=== PATIENT | female | born 1945 | race Caucasian/White ===

== ENCOUNTER 2021-11-18 15:47 | Emergency (ER) | payer MEDICARE, OTHER, SELFPAY ==
[2021-11-18 15:51] VITALS: BP 136/71; PULSE 86; RESP 18; TEMP 36.6; O2SAT 99; BMI 25.8
--- NOTE | 2021-11-18 15:56 | W.ED.GENADLT ---
HPI - General Adult General: Chief complaint: Altered Mental Status Stated complaint: AMS Time Seen by Provider: 11/18/21 15:56 Limitations: altered mental status History of Present Illness: Ms. Long is a 76-year-old lady who presents to the emergency department for reported increased confusion. Patient provides no significant meaningful history. Patient apparently has history of dementia. Per supplement information provided by nurse apparently the patient has had worsening behavioral issues and has escaped her memory care unit multiple times. At times she hits kicks punches. Today apparently she ate a bar of soap. Review of Systems General: Reports: ROS unobtainable due to medical condition and ROS unobtainable due to mental status PFSH ED PFSH: Medical History Dementia Social History Lives independently: No Housing: Custodial Physical Exam Const: COMMON NORMALS: alert EXAM LIMITATIONS: altered mental status HENMT: COMMON NORMALS: normocephalic and atraumatic HEAD & SCALP: normocephalic and atraumatic Eye: COMMON NORMALS: conjunctivae normal CONJUNCTIVA: Yes conjunctivae normal SCLERA: sclerae normal Neck/C-Spine: COMMON NORMALS: supple GENERAL: Yes trachea midline Resp: COMMON NORMALS: normal respiratory effort EFFORT & INSPECTION: Yes able to speak in complete sentences Cardio: COMMON NORMALS: regular rate and regular rhythm RATE: regular rate RHYTHM: regular rhythm GI: COMMON NORMALS: Soft to palpation PALPATION: Yes Soft to palpation and No Tenderness to palpation present (GI) Extremity: GENERAL: Yes normal exam except as noted and No edema Neuro: COMMON NORMALS: moves all extremities SENSORIUM/ORIENTATION: Yes alert and Yes Orientation impaired Psych: ATTENTION/CONCENTRATION: Yes attention grossly impaired MEMORY/COGNITION: Yes memory grossly impaired Course ED course: - Patient was seen and evaluated by me at bedside - Vital signs obtained - Initial evaluation notable for exam as above, limited history secondary to mental status - Labs and xrays personally interpreted by me - Labs notable for no leukocytosis, normal hemoglobin. Metabolic panel without acute electrolyte derangement requiring treatment. Delta troponin is negative. No evidence of a urinary tract infection - Imaging notable for negative head CT as imaged, though radiology notes limited exam I have low clinical suspicion for acute process. No lobar consolidation or pneumothorax on chest x-ray - Upon serial reexamination after treatment the patient was similar - Based on patient history, evaluation, and testing as interpreted the most likely cause of the patient's condition is behavior changes related to underlying dementia. There is no clinical indication for hospitalization. The patient resides in a dementia unit and the nursing facility should have capability to care for patient - Patient discharged in satisfactory condition back to group home. Note: Click bubbles or prepopulated jackson in note writing are used for assistance with data collection and billing and are inherently more limited than narrative and other text portions of this note. Please use narrative for additional clinical history and defer to narrative/free test for any case of contradictory information. If information appears in only free text or click bubble it should be considered present or absent as reported. Please contact note production underwriter for clarifications of clinical information or contradictory information. MDM is a brief summary, contradictory or erroneous seeming information should be clarified and full note should be reviewed. Vital Signs: Vital signs: Vital Signs Temperature 97.9 F 11/18/21 15:51 Pulse Rate 80 11/18/21 20:41 Respiratory Rate 18 11/18/21 20:41 Blood Pressure 120/71 11/18/21 20:41 Pulse Oximetry 98 11/18/21 20:41 MDM - General Adult Medical Decision Making 76-year-old lady with reported history of dementia presenting with behavioral changes. Negative ED evaluation. Changes most certainly related to underlying dementia. Patient resides in a dementia unit. Satisfactory for return to group home. Medical Records I reviewed the patient's medical records. Lab Data I reviewed the patient's lab results. : 11/18/21 16:38 11/18/21 16:38 Radiology Impressions Chest X-Ray 11/18/21 16:16 IMPRESSION: No acute findings. Head CT 11/18/21 16:16 IMPRESSION: 1. Examination is limited secondary to motion artifact which could obscure subtle pathology. 2. No acute intracranial findings. Laboratory Results WBC 6.9 10^3/uL (4.0-10.0) 11/18/21 16:38 RBC 3.89 10^6/uL (4.1-5.3) L 11/18/21 16:38 Hgb 12.0 g/dL (11.5-15.3) 11/18/21 16:38 Hct 37.3 % (37.0-47.0) 11/18/21 16:38 MCV 95.9 fl (81-99) 11/18/21 16:38 MCH 30.8 pg (28.0-34.0) 11/18/21 16:38 MCHC 32.2 g/dL (30.0-36.0) 11/18/21 16:38 RDW 14.6 % (12.1-15.1) 11/18/21 16:38 Plt Count 223 10^3/cmm (130-400) 11/18/21 16:38 MPV 10.2 fL (7.4-10.4) 11/18/21 16:38 Neut % (Auto) 72.1 % 11/18/21 16:38 Lymph % (Auto) 13.7 % 11/18/21 16:38 Turner % (Auto) 6.1 % 11/18/21 16:38 Eos % (Auto) 6.8 % 11/18/21 16:38 Baso % (Auto) 1.0 % 11/18/21 16:38 Neut # (Auto) 5.01 10^3/uL (1.8-7.7) 11/18/21 16:38 Lymph # (Auto) 1.0 10^3/uL (0.8-4.8) 11/18/21 16:38 Turner # (Auto) 0.4 10^3/uL (0.2-0.9) 11/18/21 16:38 Eos # (Auto) 0.5 10^3/uL (0.0-0.8) 11/18/21 16:38 Baso # (Auto) 0.1 10^3/uL (0.0-0.1) 11/18/21 16:38 Nucleated RBC % (auto) 0 % 11/18/21 16:38 Nucleated RBCs # 0.0 /100WBC 11/18/21 16:38 Sodium 142 mmol/L (136-145) 11/18/21 16:38 Potassium 4.0 mmol/L (3.5-5.1) 11/18/21 16:38 Chloride 108 mmol/L (98-107) H 11/18/21 16:38 Carbon Dioxide 25 mmol/L (22-29) 11/18/21 16:38 Anion Gap 13.0 (5-19) 11/18/21 16:38 BUN 18 mg/dL (8-23) 11/18/21 16:38 Creatinine 0.8 mg/dL (0.5-0.9) 11/18/21 16:38 GFR Calculation Not Reportable 11/18/21 16:38 Glucose 103 mg/dL (65-115) 11/18/21 16:38 Calculated Osmolality 296 mOsm/kg (285-295) H 11/18/21 16:38 Calcium 10.6 mg/dL (8.5-10.5) H 11/18/21 16:38 Total Bilirubin 0.3 mg/dL (0.15-1.2) 11/18/21 16:38 AST 16 U/L (0-32) 11/18/21 16:38 ALT 11 U/L (0-33) 11/18/21 16:38 Alkaline Phosphatase 140 IU/L (35-105) H 11/18/21 16:38 Troponin T Baseline 11 ng/L (0-10) H 11/18/21 16:38 Troponin T 120 Minute 11.18 ng/L (0-10) H 11/18/21 18:23 Delta Troponin T 0.18 ABS# (0-10) 11/18/21 18:23 Total Protein 6.2 g/dL (6.6-8.7) L 11/18/21 16:38 Albumin 4.4 g/dL (3.5-5.2) 11/18/21 16:38 Globulin 1.8 g/dL (1.3-4.6) 11/18/21 16:38 TSH 1.56 uIU/mL (0.27-4.20) 11/18/21 16:38 Urine Color Straw (Yellow) 11/18/21 18:40 Urine Appearance Clear (CLEAR) 11/18/21 18:40 Urine pH 7 (5-7) 11/18/21 18:40 Ur Specific [place] 1.015 (1.005-1.030) 11/18/21 18:40 Urine Protein Neg (Negative) 11/18/21 18:40 Urine Glucose (UA) Norm (Normal) 11/18/21 18:40 Urine Ketones Negative (Negative) 11/18/21 18:40 Urine Blood Neg (Negative) 11/18/21 18:40 Urine Nitrate Negative (Negative) 11/18/21 18:40 Urine Bilirubin Neg (Negative) 11/18/21 18:40 Urine Urobilinogen Norm mg/dL (Negative) 11/18/21 18:40 Ur Leukocyte Esterase Negative (Negative) 11/18/21 18:40 Salicylates < 0.3 mg/dL (3-10) L 11/18/21 16:38 Urine Opiates Screen Negative ng/mL (Negative) 11/18/21 18:40 Acetaminophen < 5.0 ug/mL (10-30) L 11/18/21 16:38 Ur Barbiturates Screen Negative ng/mL (Negative) 11/18/21 18:40 Ur Phencyclidine Scrn Negative ng/mL (Negative) 11/18/21 18:40 Ur Amphetamines Screen Negative ng/mL (Negative) 11/18/21 18:40 U Benzodiazepines Scrn Positive ng/mL (Negative) H 11/18/21 18:40 Urine Cocaine Screen Negative ng/mL (Negative) 11/18/21 18:40 U Marijuana (THC) Screen Negative ng/mL (Negative) 11/18/21 18:40 EKG Data EKG 1: I personally reviewed and interpreted this EKG as follows: EKG interpretation date: 11/18/21 EKG interpretation time: 17:27 Interpretation: ExcessTwelve-lead EKG shows a regular rhythm at a rate of 79. NE interval 140, QRS duration 82, QTc 391. Interpretation: Sinus rhythm. Computer generated interpretation: Chest X-Ray 11/18/21 16:16 IMPRESSION: No acute findings. Head CT 11/18/21 16:16 IMPRESSION: 1. Examination is limited secondary to motion artifact which could obscure subtle pathology. 2. No acute intracranial findings. EKG 2: I personally reviewed and interpreted this EKG as follows: EKG interpretation date: 11/18/21 EKG interpretation time: 19:17 Interpretation: Twelve-lead EKG shows a regular rhythm at a rate of 81. NE interval 147, QRS duration 82, QTc 384. Normal axis. Interpretation: Sinus rhythm. Computer generated interpretation: Chest X-Ray 11/18/21 16:16 IMPRESSION: No acute findings. Head CT 11/18/21 16:16 IMPRESSION: 1. Examination is limited secondary to motion artifact which could obscure subtle pathology. 2. No acute intracranial findings. Discharge Plan Discharge Patient Disposition: [facility] Clinical Impression: Dementia Condition: Stable Discharge Orders: Discharge ED (Routine); Ordered 11/18/21 Ordered By: Vipul Kay Referrals: Gio Engel DO [Primary Care Provider] - Discharge Diet: Usual diet Discharge Activity: Resume usual activity Patient Instructions: Dementia (ED) Activity Restrictions/Additional Instructions: Thank you for visiting the emergency department. You were seen and evaluated for mental status changes. There is no acute abnormality identified on CT imaging or laboratory studies to explain symptoms. I believe the likely cause of symptoms is related to underlying dementia. Please follow-up with your primary care provider. Please return to the emergency department for chest pain, shortness of breath, abdominal pain, or anything else that you are concerned about and feel needs emergency department evaluation. Coding Level of Care Code ED Blind Escort for Petr Fwd Exam Comprehensive
[2021-11-18 16:02] VITALS: BP 102/78; PULSE 84; RESP 18; O2SAT 99
--- NOTE | 2021-11-18 16:16 | XRR_ITS ---
PROCEDURE INFORMATION: Exam: XR Chest Exam date and time: 11/18/2021 3:35 PM Age: 76 years old Clinical indication: Other: AMS TECHNIQUE: Imaging protocol: XR of the chest. Views: 1 view. COMPARISON: MR MRCP [id number] 06/02/2018 9:54 AM FINDINGS: Lungs: Unremarkable. No consolidation. Pleural spaces: Unremarkable. No pleural effusion. No pneumothorax. Heart/Mediastinum: Unremarkable. No cardiomegaly. Bones/joints: Moderate thoracic spondylosis. Organs: Surgical clips in the gallbladder fossa consistent with cholecystectomy. XR/XR chest 1V portable [id number] IMPRESSION: No acute findings.
--- NOTE | 2021-11-18 16:16 | CTR_ITS ---
PROCEDURE INFORMATION: Exam: CT Head Without Contrast Exam date and time: 11/18/2021 4:54 PM Age: 76 years old Clinical indication: Altered mental status/memory loss; Age related cognitive decline; Patient HX: PT with AMS TECHNIQUE: Imaging protocol: Computed tomography of the head without contrast. Radiation optimization: All CT scans at this facility use at least one of these dose optimization techniques: automated exposure control; mA and/or kV adjustment per patient size (includes targeted exams where dose is matched to clinical indication); or iterative reconstruction. COMPARISON: MRI Head w/wo* [id number] 04/15/2018 11:57 AM RADIATION DOSE METRICS: Total DLP (mGy-cm): 852.21 FINDINGS: Brain: Mild nonspecific bilateral basal ganglia calcifications. Mild cerebral atrophy and ischemic leukoencephalopathy. Cerebral ventricles: No ventriculomegaly. Paranasal sinuses: Visualized sinuses are unremarkable. No fluid levels. Mastoid air cells: Visualized mastoid air cells are well aerated. Bones/joints: Unremarkable. No acute fracture. Soft tissues: Unremarkable. Other findings: Examination is limited secondary to motion artifact which could obscure subtle pathology. CT/CT head wo con* [id number] IMPRESSION: 1. Examination is limited secondary to motion artifact which could obscure subtle pathology. 2. No acute intracranial findings.
--- NOTE | 2021-11-18 16:16 | PC.PHAR ---
[facility] the [facility]ts wanted the following medications dced on 10/31/21 estefania leon buspar,depakote,norvasc,vitamin d3 and zoloft were dced per husbands request-estefania states the pt was taking zyprexa 5mg tid (last took 11/18/21 11:30)and suppose to start 10mg tid on 11/19/21 not on [place] mar
--- NOTE | 2021-11-18 16:17 | ECG_ITS ---
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 Measurements Intervals [place] Rate: 79 P: 72 [place]: 140 QRS: 37 QRSD: 82 T: 50 QT: 356 QTc: 410 Interpretive Statements SINUS RHYTHM Compared to ECG 06/01/2018 08:48:13 ST (T wave) deviation no longer present Prolonged QT interval no longer present Electronically Signed On 11-18-2021 20:26:31 CDT by Thuan Espinoza M.D. [id number]
[2021-11-18 16:49] LABS: Basophils # 0.1 10^3/uL (0.0-0.1); Eosinophils # 0.5 10^3/uL (0.0-0.8); Eosinophils % 6.8 %; Hematocrit 37.3 % (37.0-47.0); Lymphocytes % 13.7 %; Mean Corpuscular HGB Conc 32.2 g/dL (30.0-36.0); Mean Corpuscular Hemoglobin 30.8 pg (28.0-34.0); Mean Corpuscular Volume 95.9 fl (81-99); Mean Platelet Volume 10.2 fL (7.4-10.4); Monocytes # 0.4 10^3/uL (0.2-0.9); Monocytes % 6.1 %; Neutrophils # 5.01 10^3/uL (1.8-7.7); Neutrophils % 72.1 %; Nucleated Red Blood Cells % 0 %; Platelet Count 223 10^3/cmm (130-400); Red Blood Count 3.89 10^6/uL (4.1-5.3); Red Cell Distribution Width 14.6 % (12.1-15.1); White Blood Count 6.9 10^3/uL (4.0-10.0)
[2021-11-18 17:41] LABS: Troponin(5th) Baseline 11 ng/L (0-10)
[2021-11-18 17:50] LABS: Alanine Aminotransferase 11 U/L (0-33); Albumin Level 4.4 g/dL (3.5-5.2); Alkaline Phosphatase 140 IU/L (35-105); Aspartate Amino Transferase 16 U/L (0-32); Blood Urea Nitrogen 18 mg/dL (8-23); Calcium 10.6 mg/dL (8.5-10.5); Carbon Dioxide 25 mmol/L (22-29); Chloride 108 mmol/L (98-107); Globulin 1.8 g/dL (1.3-4.6); Glucose 103 mg/dL (65-115); Osmolality Calculated 296 mOsm/kg (285-295); Sodium 142 mmol/L (136-145); Thyroid Stimulating Hormone 1.56 uIU/mL (0.27-4.20); Total Bilirubin 0.3 mg/dL (0.15-1.2); Total Protein 6.2 g/dL (6.6-8.7)
[2021-11-18 17:58] LABS: Acetaminophen < 5.0 ug/mL (10-30); Salicylate < 0.3 mg/dL (3-10)
--- NOTE | 2021-11-18 18:17 | ECG_ITS ---
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 Measurements Intervals [place] Rate: 81 P: 67 MT: 147 QRS: 33 QRSD: 82 T: 49 QT: 347 QTc: 403 Interpretive Statements SINUS RHYTHM WARNING: DATA QUALITY MAY AFFECT INTERPRETATION Compared to ECG 11/18/2021 16:24:36 No significant changes Electronically Signed On 11-18-2021 20:43:16 CDT by Thuan Espinoza M.D. [id number]
--- NOTE | 2021-11-18 18:47 | PC.NURSE ---
patient spouse and son have called to check on patient, patient is very active and is not able to follow commands, patient has dementia, patient moves quickly, refuses to stay in bed, able to get up around rail, climbs across entire bed, took a few slips of milk and a bite of pudding, patient is unable to be by herself- must have someone in the room, patient is currently folding wash rags and talking with a sitter
[2021-11-18 18:53] LABS: Add Urine Microscopic? NO; Charge for UA Resulting for Rev
[2021-11-18 18:56] LABS: Bilirubin Urine Neg (Negative); Blood Urine Neg (Negative); Glucose Urine UA Norm (Normal); Ketones Urine Negative (Negative); Leukocyte Esterase Urine Negative (Negative); Nitrate Urine Negative (Negative); Protein Urine Neg (Negative); Specific Gravity, Urine 1.015 (1.005-1.030); Urine Appearance Clear (CLEAR); Urine Color Straw (Yellow); Urobilinogen Urine Norm (Negative); pH Urine 7 (5-7)
[2021-11-18 19:02] LABS: Troponin 5 2HR 11.18 ng/L (0-10)
[2021-11-18 19:04] LABS: Amphetamines Screen Urine Negative (Negative); Barbiturates Screen Urine Negative (Negative); Benzodiazepines Screen Urine Positive (Negative); Cocaine Screen Urine Negative (Negative); Opiate Screen Urine Negative (Negative); PCP Screen Urine Negative (Negative); THC Screen Urine Negative (Negative)
[2021-11-18 19:06] LABS: Troponin 5 2HR Delta 0.18 ABS# (0-10)
[2021-11-18 20:41] VITALS: BP 120/71; PULSE 80; RESP 18; O2SAT 98
== END 2021-11-18 20:44 ==
PROVIDERS: Emergency Provider Emergency Medicine; PCP Family Medicine
DX: F03.90 Unspecified dementia, unspecified severity, without behavioral disturbance, psychotic disturbance, mood disturbance, and anxiety (principal)
CPT/HCPCS: 70450; 71045; 80053; 80306; 80307; 81003; 84443; 84484; 85025; 93005; 99283

== ENCOUNTER 2021-11-19 15:32 | Emergency (ER) | payer MEDICARE, OTHER, SELFPAY ==
[2021-11-19 15:36] VITALS: BP 139/75; PULSE 82; RESP 16; TEMP 36.6; O2SAT 95; BMI 24.2
--- NOTE | 2021-11-19 15:41 | ED.C_ITS ---
Documented by User: Vipul Kay MD 11/25/21 23:02 HPI - Psych General: Chief Complaint: Psychiatric Symptoms Stated Complaint: PSYCH EVAL Time Seen by Provider: 11/19/21 15:40 Limitations: altered mental status History of Present Illness: Ms. Long is a 76-year-old lady who presents to the emergency department for reported increased confusion.? Patient provides no significant meaningful history.? Patient apparently has history of dementia. She was evaluated yesterday for similar complaints and presents for unclear change. She did have reported increased violent behavior at her alf for her visit yesterday. Review of Systems General: Reports: ROS unobtainable due to medical condition PFSH ED PFSH: Medical History Dementia Social History Lives independently: No Housing: Group Home Physical Exam Const: COMMON NORMALS: alert EXAM LIMITATIONS: altered mental status GE NERAL APPEARANCE: cooperative HENMT: COMMON NORMALS: normocephalic and atraumatic HEAD & SCALP: normocephalic and atraumatic Eye: COMMON NORMALS: conjunctivae normal CONJUNCTIVA: Yes conjunctivae normal SCLERA: sclerae normal Neck/C-Spine: COMMON NORMALS: supple GENERAL: Yes trachea midline Resp: COMMON NORMALS: normal respiratory effort EFFORT & INSPECTION: Yes able to speak in complete sentences Cardio: COMMON NORMALS: regular rate and regular rhythm RATE: regular rate RHYTHM: regular rhythm GI: COMMON NORMALS: Soft to palpation PALPATION: Yes Soft to palpation and No Tenderness to palpation present (GI) Extremity: GENERAL: Yes normal exam except as noted and No edema Neuro: COMMON NORMALS: moves all extremities SENSORIUM/ORIENTATION: Yes alert and Yes Orientation impaired Psych: MEMORY/COGNITION: Yes memory grossly impaired and Yes cognition grossly impaired Course ED course: - Patient was seen and evaluated by me at chairside - Vital signs obtained - Initial evaluation notable for exam as above - Previous days labs reviewed. Covid test pending - Patient denies complaints and appears similar to prior day on exam. I believe that the patient's behaviors are significantly contributed to by her underlying dementia however apparently the alf has noted change in behavior and requests medical clearance and transfer to inpatient geriatric psych facility. In discussion with the facility that apparently the alf discussed the case with we will plan to have them provide supplemental information to the facility for consideration of admission. - Based on ED evaluation at this point there is no obvious condition that would preclude the patient from aforementioned disposition to [facility]. - Handed off pended acceptance to [facility] Vital Signs: Vital signs: Vital Signs Temperature 97.9 F 11/19/21 15:36 Pulse Rate 78 11/20/21 00:15 Respiratory Rate 21 H 11/20/21 00:15 Blood Pressure 144/88 11/20/21 00:15 Pulse Oximetry 97 11/20/21 00:15 [facility] - Psych Lab Data Laboratory Results Coronavirus 229E (PCR) Not detected (NOT DETECT) 11/19/21 16:45 SARS-CoV-2 (PCR) Not detected (NOT DETECT) 11/19/21 16:45 Discharge Plan Discharge Patient Disposition: [facility] Clinical Impression: Dementia, Acute psychosis Condition: Stable Referrals: Gio Engel, [Primary Care Provider] - Coding Level of Care Code ED Mechanical Project Engineer for Chg Fwd Exam Comprehensive Documented by User: Niki Cavazos MD 11/20/21 00:19 HPI - Psych General: Chief Complaint: Psychiatric Symptoms Stated Complaint: PSYCH EVAL Time Seen by Provider: 11/19/21 15:40 PFSH ED PFSH: Medical History Dementia Social History Lives independently: No Housing: Group Home Course Vital Signs: Vital signs: Vital Signs Temperature 97.9 F 11/19/21 15:36 Pulse Rate 78 11/20/21 00:15 Respiratory Rate 21 H 11/20/21 00:15 Blood Pressure 144/88 11/20/21 00:15 Pulse Oximetry 97 11/20/21 00:15 [facility] - Psych Medical Decision Making Patient presents here with psychiatric issues from alf patient excepted at [facility] and will transfer there she is medically cleared. Lab Data Laboratory Results Coronavirus 229E (PCR) Not detected (NOT DETECT) 11/19/21 16:45 SARS-CoV-2 (PCR) Not detected (NOT DETECT) 11/19/21 16:45 Discharge Plan Discharge Patient Disposition[facility] Clinical Impression: Dementia, Acute psychosis Condition: Stable Referrals: Gio Engel, [Primary Care Provider] - Coding Level of Care Code ED Mechanical Project Engineer for Chg Fwd Exam Comprehensive
[2021-11-19 18:51] LABS: Adenovirus Not Detected (NOT DETECT); Chlamydia Pneumoniae Not Detected (NOT DETECT); Coronavirus 229E,HKU1,NL63,OC4 Not Detected (NOT DETECT); Human Metapneumovirus Not Detected (NOT DETECT); Human Rhinovirus/Enterovirus Not Detected (NOT DETECT); Influenza A Not Detected (NOT DETECT); Influenza A H1 Not Detected (NOT DETECT); Influenza A H1-2009 Not Detected (NOT DETECT); Influenza A H3 Not Detected (NOT DETECT); Influenza B Not Detected (NOT DETECT); Mycoplasma Pneumoniae Not Detected (NOT DETECT); Parainfluenza Virus Type 1 Not Detected (NOT DETECT); Parainfluenza Virus Type 2 Not Detected (NOT DETECT); Parainfluenza Virus Type 3 Not Detected (NOT DETECT); Parainfluenza Virus Type 4 Not Detected (NOT DETECT); Respiratory Syncytial Virus A Not Detected (NOT DETECT); Respiratory Syncytial Virus B Not Detected (NOT DETECT); SARS-COV-2 Not Detected (NOT DETECT)
[2021-11-19] MEDS: haloperidol inj 5 mg/mL INJ 1 mL IM (19:54)
[2021-11-19] MEDS: LORazepam 2 mg/mL INJ 1 mL 1 MG IM (19:54)
--- NOTE | 2021-11-19 22:12 | PC.NURSE ---
called for consent to send patient to be treated at [facility] for psych evaluation. angry on the phone and states that nobody called him to tell him that she was being sent here. He states that the reason she is here in the hospital because they do not give her medications to her like it is ordered and they do not pay attention to the family when they keep asking them to give the medication . also states that the patient has IBS and is lactose intolerant and this causes upset stomach and GI problems that also upsets her . states that the family keeps calling and telling them over and over and nobody listens to what is going on.
[2021-11-20 00:15] VITALS: BP 144/88; PULSE 78; RESP 21; O2SAT 97
== END 2021-11-20 00:42 ==
PROVIDERS: Emergency Provider Emergency Medicine; PCP Family Medicine
DX: F23 Brief psychotic disorder (principal); F03.90 Unspecified dementia, unspecified severity, without behavioral disturbance, psychotic disturbance, mood disturbance, and anxiety; Z20.822 Contact with and (suspected) exposure to COVID-19
CPT/HCPCS: 87635; 96372; 99285; J1630; J2060